=== PATIENT | male | born 1990 | race Caucasian/White ===

== ENCOUNTER 2017-08-16 13:26 | Emergency (ER) | payer SELFPAY ==
--- NOTE | 2017-08-16 14:00 | EDM.PDOC ---
ED HPI GENERAL MEDICAL PROBLEM - General Chief Complaint: Lower Extremity Injury/Pain Stated Complaint: LEFT TOE GOUT Time Seen by Provider: 08/16/17 13:58 Source of Information: Reports: Patient - History of Present Illness INITIAL COMMENTS - FREE TEXT/NARRATIVE: Patient is here for evaluation of pain, redness and swelling to his left great toe. Patient reports a history of gout, states that his elbow flares have been increasing in frequency recently. Patient recently moved to [place] from [place]. He also recently stopped drinking alcohol which he was drinking approximately 12 pack of beer per day. He was also smoking marijuana at that time. He states that he moved to [place] to work, make money and "get away from that stuff". He denies any other chronic medical conditions. He has had orthopedic surgery on his left wrist previously. He is not on any medications on a daily basis. Denies any current alcohol or drug use. Left Feet Pain Score (Numeric/FACES): 6 - Related Data Allergies Allergy/AdvReac Type Severity Reaction Status Date / Time morphine Allergy Cardiac Verified 08/16/17 13:45 Ar[facility] Home Meds: Home Meds Indomethacin 25 mg PO TID #30 capsule 08/16/17 [Rx] Past Medical History Neurological History: Reports: Other (See Below) Other Neuro History: states has had multiple strokes a few years ago, states it is "like a heat stroke and a regular stroke at the same time" Hematologic History: Reports: Other (See Below) Other Hematologic History: hypokalemia Social & Family History - Tobacco Use Smoking Status *Q: Current Every Day Smoker Years of Tobacco use: 14 Packs/Tins Daily: 0.5 - Caffeine Use Caffeine Use: Reports: Coffee, Energy Drinks - Recreational Drug Use Recreational Drug Use: Yes Drug Use in Last 12 Months: Yes Recreational Drug Type: Reports: Marijuana/Hashish Review of Systems - Review of Systems Review Of Systems: See Below Constitutional: Reports: No Symptoms Respiratory: Reports: No Symptoms Cardiovascular: Reports: No Symptoms Musculoskeletal: Reports: Other (Left great toe pain) Skin: Reports: Change in Color ED EXAM, GENERAL - Physical Exam Exam: See Below General Appearance: Alert, WD/WN, No Apparent Distress Respiratory/Chest: No Respiratory Distress, Lungs Clear Cardiovascular: Normal Peripheral Pulses, Regular Rate, Rhythm, No Murmur Peripheral Pulses: 2+: Posterior Tibial (L), Dorsalis Pedis (L) Extremities: Normal Inspection, Normal Range of Motion, Other (Redness and erythema to left great toe. Area is mildly warm to the touch.). No: Pedal Edema Neurological: Alert, Oriented, No Motor/Sensory Deficits Course - Vital Signs Last Recorded V/S: Last Vital Signs Temp 98.3 F 08/16/17 13:40 Pulse 79 08/16/17 13:40 Resp 18 08/16/17 13:40 BP 144/93 H 08/16/17 13:40 Pulse Ox 98 08/16/17 13:40 - Re-Assessments/Exams Free Text/Narrative Re-Assessment/Exam: Acute gout flare. Options were discussed, patient declines lab work for now. Will treat with indomethacin and he'll be given a handout for low purine diet. As his gout flares have increased frequency, he'll follow up in the clinic when flare has subsided to check uric acid level and may need to continue consider allopurinol going forward. Patient would also like STI screening at that time. He plans to wait to schedule this until his insurance kicks in. 08/16/17 14:20 Departure - Departure Time of Disposition: 14:21 Disposition: Home, Self-Care 01 Condition: Good Clinical Impression: Gout Qualifiers: Gout site: toe Encounter type: initial encounter Chronicity: acute Laterality: left - Discharge Information Prescriptions: Indomethacin 25 mg PO TID #30 capsule Referrals: Zi Rojas PA [Emergency Provider] - Forms: ED Department Discharge Additional Instructions: You were evaluated in the emergency room for a acute gout flare. You'll be treated with indomethacin. He reported he does 3 times daily, you may taper off this as symptoms improve. I recommend that you follow a low purine diet. Follow-up in clinic when this subsides to have uric acid level checked and STI screening. You may schedule with Zi Rojas PA-C at [phone]
== END 2017-08-16 14:40 | disposition home or self-care (01) ==
LOC: JD.ED 13:26
DX: M10.9 Gout, unspecified (principal); F17.210 Nicotine dependence, cigarettes, uncomplicated; Z88.5 Allergy status to narcotic agent
CPT/HCPCS: 99283

== ENCOUNTER 2017-10-11 06:53 | Emergency (ER) | payer SELFPAY ==
--- NOTE | 2017-10-11 07:37 | EDM.PDOC ---
ED HPI GENERAL MEDICAL PROBLEM - General Chief Complaint: ENT Problem Stated Complaint: TOOTH PAIN Time Seen by Provider: 10/11/17 07:22 Source of Information: Reports: Patient, RN Notes Reviewed - History of Present Illness INITIAL COMMENTS - FREE TEXT/NARRATIVE: 27-year-old male with dental pain. His left posterior molar has been cavitated for a long time, started hurting intensely 2 days ago and continues with severe pain, taking high doses of Motrin with minimal relief. 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 Musculoskeletal History: Reports: Fracture Neurological History: Reports: Other (See Below) Other Neuro History: states has had multiple strokes a few years ago, states it is "like a heat stroke and a regular stroke at the same time" Psychiatric History: Reports: ADD, Anxiety, Bipolar, Depression Hematologic History: Reports: Other (See Below) Other Hematologic History: hypokalemia - Infectious Disease History Infectious Disease History: Reports: Chicken Pox - Past Surgical History HEENT Surgical History: Reports: Other (See Below) Other HEENT Surgeries/Procedures: tooth "cut out." Musculoskeletal Surgical History: Reports: Other (See Below) Other Musculoskeletal Surgeries/Procedures:: saws all blade "removed from my arm." Social & Family History - Tobacco Use Smoking Status *Q: Current Every Day Smoker Years of Tobacco use: 11 Packs/Tins Daily: 1 - Caffeine Use Caffeine Use: Reports: Coffee, Energy Drinks, Soda - Recreational Drug Use Recreational Drug Use: No ED ROS ENT - Review of Systems Review Of Systems: See Below Constitutional: Denies: Fever HEENT: Reports: Dental Pain. Denies: Throat Pain Respiratory: Denies: Shortness of Breath GI/Abdominal: Denies: Abdominal Pain, Nausea, Vomiting Musculoskeletal: Reports: No Symptoms Skin: Reports: No Symptoms Neurological: Reports: No Symptoms ED EXAM, ENT - Physical Exam Exam: See Below General Appearance: Alert, Mild Distress Mouth/Throat: Dental Pain (Left lower posterior molar, no gum swelling or drainage) Head: Facial Tenderness (Left posterior jaw on). No: Facial Swelling Neck: Supple. No: Lymphadenopathy (L), Lymphadenopathy (R) Respiratory/Chest: No Respiratory Distress Neurological: Alert, No Motor/Sensory Deficits Skin: Warm, Dry, Normal Color Course - Vital Signs Last Recorded V/S: Last Vital Signs Temp 97.5 F 10/11/17 07:05 Pulse 62 10/11/17 07:05 Resp 18 10/11/17 07:05 BP 119/79 10/11/17 07:05 Pulse Ox 97 10/11/17 07:05 Departure - Departure Time of Disposition: 07:33 Disposition: Home, Self-Care 01 Condition: Fair Clinical Impression: Pain, dental - Discharge Information Prescriptions: Acetaminophen/HYDROcodone [[place] 325-5 MG] 1 tab PO Q6H PRN #14 tablet PRN Reason: Pain Instructions: Dental Abscess, [id number] Referrals: PCP,None [Primary Care Provider] - Forms: ED Department Discharge Additional Instructions: Amoxicillin 1000 mg twice daily until gone, continue Motrin or ibuprofen, take that 600 mg 3 times daily, take Tylenol or hydrocodone in between doses for extra pain relief, do not drive when taking hydrocodone. Do not operate power equipment when taking hydrocodone. See dentist as soon as possible.
== END 2017-10-11 07:49 | disposition home or self-care (01) ==
LOC: JD.ED 06:53
DX: K08.89 Other specified disorders of teeth and supporting structures (principal); F17.210 Nicotine dependence, cigarettes, uncomplicated; Z88.5 Allergy status to narcotic agent
CPT/HCPCS: 99283